=== PATIENT | female | born 1960 | race Caucasian/White ===

== ENCOUNTER 2024-02-03 17:41 | Observation (INO) | payer BC ==
[2024-02-03 18:37] LABS: #Basophils 0.05 10x3/uL (0.0-0.2); #Eosinphils 0.23 10x3/uL (0.0-0.5); #Monocytes 0.54 10x3/uL (0.0-1.1); #Neutrophils 3.78 10x3/uL (1.5-8.4); %Basophils 0.7 % (0.0-2.0); %Eosinophils 3.1 % (0.0-6.0); %Lymphocytes 36.8 % (18.0-47.0); %Monocytes 7.4 % (0.0-10.0); %Neutrophils 51.7 % (40.0-75.0); Hematocrit 43.9 % (34.9-44.5); Hemoglobin 15.1 g/dL (12.0-15.5); Mean Corpuscular HGB CONC 34.4 g/dL (32.0-36.0); Mean Corpuscular Hemoglobin 30.6 pg (27.0-33.0); Platelet Count 174 10x3/uL (150-450); RBC Distribution Width 14.1 % (11.5-14.5); Red Blood Cell (RBC) Count 4.93 10x6/uL (3.90-5.03); White Blood Cell (WBC) Count 7.3 10x3/uL (3.5-10.5)
[2024-02-03 18:52] LABS: ALT (SGPT) 17 U/L (8-55); AST (SGOT) 26 U/L (5-34); Alkaline Phosphatase 74 U/L (40-110); Anion Gap 22 mmol/L (10-20); BUN (Urea Nitrogen) 15 mg/dL (9.8-20.1); Bilirubin, Total 1.3 mg/dL (0.2-1.2); Calc. Creatinine Clearance 0 mL/min (70-130); Carbon Dioxide 25 mmol/L (23-31); Chloride 106 mmol/L (98-107); Estimated GFR 80; Globulin 3.3 g/dL (2.4-3.5); Glucose 84 mg/dL (80-115); Lipase 37 U/L (8-78); Potassium 5.7 mmol/L (3.5-5.1); Protein, Total 7.3 g/dL (5.8-8.1); Sodium 147 mmol/L (136-145)
[2024-02-03 18:57] LABS: Troponin I Less than 0.010 ng/mL (< 0.028)
[2024-02-03] MEDS ORDERED: Aspirin Chewable 81 MG TAB ONE (20:37)
[2024-02-03] MEDS ORDERED: Nitroglycerin 0.4 MG TAB (25 Tab Bottle) SL PRN (21:51)
[2024-02-03 22:04] VITALS: BMI 16.5
[2024-02-03] MEDS: Nicotine 21 MG PATCH TD SCH (22:24)
[2024-02-03] MEDS: Atorvastatin Calcium 40 MG TAB PO SCH (22:26)
[2024-02-03] MEDS: Nitroglycerin 2% Ointment 1 INCH/1 GM Packet TOP SCH (22:27)
[2024-02-03] MEDS: Enoxaparin 40 MG (0.4 mL) SYRINGE SC SCH (22:29)
[2024-02-03] MEDS: LOKELMA 10 GM PACKET PO SCH (22:30)
[2024-02-03 22:35] LABS: Magnesium 2.1 mg/dL (1.6-2.6)
[2024-02-03 22:42] LABS: Troponin I Less than 0.010 ng/mL (< 0.028)
[2024-02-03] MEDS ORDERED: FLU (Fluarix Triv) TS24-25(6MOS UP)/PF 45 MCG/0.5 ML Syringe IM ONE (23:30)
[2024-02-04 01:44] LABS: Troponin I Less than 0.010 ng/mL (< 0.028)
[2024-02-04 05:32] LABS: #Basophils 0.05 10x3/uL (0.0-0.2); #Eosinphils 0.24 10x3/uL (0.0-0.5); #Neutrophils 2.74 10x3/uL (1.5-8.4); %Basophils 0.9 % (0.0-2.0); %Eosinophils 4.3 % (0.0-6.0); %Lymphocytes 36.7 % (18.0-47.0); %Monocytes 8.9 % (0.0-10.0); Hematocrit 40.5 % (34.9-44.5); Hemoglobin 13.9 g/dL (12.0-15.5); Mean Corpuscular HGB CONC 34.3 g/dL (32.0-36.0); Mean Corpuscular Hemoglobin 30.9 pg (27.0-33.0); Mean Platelet Volume 11.8 fL (7.4-10.4); Platelet Count 163 10x3/uL (150-450); White Blood Cell (WBC) Count 5.6 10x3/uL (3.5-10.5)
[2024-02-04 05:49] LABS: Cardiac Risk 2.6 (Less than 4.5)
[2024-02-04 05:51] LABS: Anion Gap 12 mmol/L (10-20); BUN (Urea Nitrogen) 13 mg/dL (9.8-20.1); Calc. Creatinine Clearance 58 mL/min (70-130); Calcium 8.4 mg/dL (7.8-10.44); Carbon Dioxide 22 mmol/L (23-31); Chloride 112 mmol/L (98-107); Estimated GFR 97; Glucose 80 mg/dL (80-115); Potassium 3.4 mmol/L (3.5-5.1); Sodium 143 mmol/L (136-145)
[2024-02-04 07:57] VITALS: TEMP 98.2
[2024-02-04] MEDS: Aspirin Chewable 81 MG TAB PO SCH (07:58)
[2024-02-04] MEDS ORDERED: DAPAGLIFLOZIN PROPANEDIOL 10 MG PO SCH (09:00)
[2024-02-04 11:41] VITALS: BP 108/69
[2024-02-04] MEDS: Carvedilol 3.125 MG TAB PO SCH (12:57)
[2024-02-04] MEDS ORDERED: Sacubitril 24MG/Valsartan 26 MG TAB PO SCH (21:00)
[2024-02-04] MEDS ORDERED: Atorvastatin Calcium 40 MG TAB PO SCH (21:00)
== END 2024-02-04 13:54 | disposition home or self-care (01) ==
LOC: CSHERS 17:41 → CSHTELE 19:38
PROVIDERS: ADMIT Family Medicine; ATTEND Family Medicine
DX: R07.9 Chest pain, unspecified (principal); J44.9 Chronic obstructive pulmonary disease, unspecified; I25.119 Atherosclerotic heart disease of native coronary artery with unspecified angina pectoris; I11.0 Hypertensive heart disease with heart failure; F17.200 Nicotine dependence, unspecified, uncomplicated; I50.22 Chronic systolic (congestive) heart failure; E78.5 Hyperlipidemia, unspecified; I73.9 Peripheral vascular disease, unspecified; E87.5 Hyperkalemia; I42.0 Dilated cardiomyopathy; R91.1 Solitary pulmonary nodule; J43.9 Emphysema, unspecified; E55.9 Vitamin D deficiency, unspecified; Z86.19 Personal history of other infectious and parasitic diseases; Z90.49 Acquired absence of other specified parts of digestive tract; Z79.899 Other long term (current) drug therapy; Z90.89 Acquired absence of other organs; Z79.82 Long term (current) use of aspirin
CPT/HCPCS: 36415; 71045; 80048; 80053; 80061; 83690; 83735; 83880; 84484; 85025; 85379; 93005; 93010; 96372; G0378; J1650